=== PATIENT | male | born 1965 | race Caucasian/White ===

== ENCOUNTER 2017-06-21 15:23 | Emergency (ER) | payer OTHER ==
[~2017-06-21] VITALS: Ht 170.2 cm; Wt 70.8 kg
[2017-06-21 16:30] VITALS: BP 165/92
== END 2017-06-21 16:30 | disposition home or self-care (01) ==
LOC: ED 15:23
DX: B34.9 Viral infection, unspecified (principal); I10 Essential (primary) hypertension

== ENCOUNTER 2017-07-04 16:23 | Emergency (ER) | payer OTHER ==
[2017-07-04 19:13] VITALS: BP 141/77
== END 2017-07-04 19:13 | disposition home or self-care (01) ==
LOC: ED 16:23
DX: G89.29 Other chronic pain (principal); M25.562 Pain in left knee; I10 Essential (primary) hypertension
CPT/HCPCS: J1885

== ENCOUNTER 2017-08-15 19:09 | Emergency (ER) | payer OTHER ==
[2017-08-15 19:17] VITALS: BP 158/111
== END 2017-08-15 22:50 | disposition home or self-care (01) ==
LOC: ED 19:09
DX: S61.210A Laceration without foreign body of right index finger without damage to nail, initial encounter (principal); I10 Essential (primary) hypertension; W25.XXXA Contact with sharp glass, initial encounter; Y93.89 Activity, other specified; Y92.89 Other specified places as the place of occurrence of the external cause; Y99.8 Other external cause status
CPT/HCPCS: 90715; A4570

== ENCOUNTER 2017-08-18 12:52 | Emergency (ER) | payer OTHER ==
[~2017-08-18] VITALS: Ht 170.2 cm; Wt 71.2 kg
[2017-08-18 15:36] VITALS: BP 136/93
== END 2017-08-18 15:36 | disposition home or self-care (01) ==
LOC: ED 12:52
DX: S61.411D Laceration without foreign body of right hand, subsequent encounter (principal); I10 Essential (primary) hypertension; X58.XXXD Exposure to other specified factors, subsequent encounter

== ENCOUNTER 2017-08-21 17:13 | Emergency (ER) | payer OTHER ==
[~2017-08-21] VITALS: Ht 170.2 cm; Wt 70.8 kg
[2017-08-21 17:24] VITALS: Ht 170.2 cm; Wt 70.8 kg
[2017-08-21 20:22] VITALS: BP 129/85
== END 2017-08-21 20:22 | disposition home or self-care (01) ==
LOC: ED 17:13
DX: S61.211D Laceration without foreign body of left index finger without damage to nail, subsequent encounter (principal); I10 Essential (primary) hypertension; X58.XXXD Exposure to other specified factors, subsequent encounter

== ENCOUNTER 2018-10-30 14:01 | Emergency (ER) | payer OTHER ==
[~2018-10-30] VITALS: Ht 170.2 cm; Wt 72.6 kg
[2018-10-30 14:53] VITALS: Ht 170.2 cm; Wt 72.6 kg
[2018-10-30 17:40] VITALS: BP 160/101
== END 2018-10-30 17:40 | disposition home or self-care (01) ==
LOC: ED 14:01
DX: J20.9 Acute bronchitis, unspecified (principal); G89.29 Other chronic pain; M54.9 Dorsalgia, unspecified; I10 Essential (primary) hypertension
CPT/HCPCS: J1885

== ENCOUNTER 2018-11-09 18:12 | Emergency (ER) | payer OTHER ==
[~2018-11-09] VITALS: Ht 170.2 cm; Wt 72.1 kg
[2018-11-09 18:55] VITALS: Ht 170.2 cm; Wt 72.1 kg
[2018-11-09 21:59] VITALS: BP 150/89
== END 2018-11-09 21:59 | disposition home or self-care (01) ==
LOC: ED 18:12
DX: R05 Cough (principal); H92.02 Otalgia, left ear; I10 Essential (primary) hypertension; G89.29 Other chronic pain; M54.9 Dorsalgia, unspecified

== ENCOUNTER 2019-01-28 12:53 | Emergency (ER) | payer OTHER ==
[~2019-01-28] VITALS: Ht 170.2 cm; Wt 71.2 kg
[2019-01-28 12:56] VITALS: BP 155/87; Ht 170.2 cm; Wt 71.2 kg
== END 2019-01-28 13:57 | disposition home or self-care (01) ==
LOC: ED 12:53
DX: S89.92XA Unspecified injury of left lower leg, initial encounter (principal); I10 Essential (primary) hypertension; G89.29 Other chronic pain; W01.198A Fall on same level from slipping, tripping and stumbling with subsequent striking against other object, initial encounter; Y93.89 Activity, other specified; Y92.89 Other specified places as the place of occurrence of the external cause; Y99.8 Other external cause status

== ENCOUNTER 2019-03-09 18:04 | Emergency (ER) | payer OTHER ==
[~2019-03-09] VITALS: Ht 170.2 cm; Wt 71.2 kg
[2019-03-09 18:09] VITALS: Ht 170.2 cm; Wt 71.2 kg
[2019-03-09 19:19] VITALS: BP 141/93
== END 2019-03-09 19:19 | disposition home or self-care (01) ==
LOC: ED 18:04
DX: J02.9 Acute pharyngitis, unspecified (principal); R19.7 Diarrhea, unspecified; I10 Essential (primary) hypertension; G89.29 Other chronic pain

== ENCOUNTER 2019-03-18 13:14 | Emergency (ER) | payer OTHER ==
[~2019-03-18] VITALS: Ht 170.2 cm; Wt 70.3 kg
[2019-03-18 13:18] VITALS: Ht 170.2 cm; Wt 70.3 kg
[2019-03-18 14:53] VITALS: BP 138/89
== END 2019-03-18 14:53 | disposition home or self-care (01) ==
LOC: ED 13:14
DX: J20.8 Acute bronchitis due to other specified organisms (principal); I10 Essential (primary) hypertension; G89.29 Other chronic pain; M54.9 Dorsalgia, unspecified

== ENCOUNTER 2020-06-08 23:06 | Emergency (ER) | payer OTHER ==
[~2020-06-08] VITALS: Ht 172.7 cm; Wt 73.3 kg
[2020-06-08 23:24] VITALS: Ht 172.7 cm; Wt 73.3 kg
[2020-06-09 02:30] VITALS: BP 144/95
== END 2020-06-09 02:30 | disposition home or self-care (01) ==
LOC: ED 23:06
DX: M54.5 Low back pain (principal); I10 Essential (primary) hypertension; Z98.890 Other specified postprocedural states
CPT/HCPCS: J2270; Q0162

== ENCOUNTER 2020-11-07 09:40 | Emergency (ER) | payer OTHER ==
[~2020-11-07] VITALS: Ht 172.7 cm; Wt 74.4 kg
[2020-11-07 09:47] VITALS: Ht 172.7 cm; Wt 74.4 kg
[2020-11-07] MEDS ORDERED: MOT600 PO (11:26)
[2020-11-07] MEDS ORDERED: NOR10T PO (11:26)
[2020-11-07 11:30] VITALS: BP 130/87
== END 2020-11-07 11:30 | disposition home or self-care (01) ==
LOC: ED 09:40
DX: N20.0 Calculus of kidney (principal); I10 Essential (primary) hypertension
CPT/HCPCS: J1885; J2270